=== PATIENT | male | born 1965 | race Caucasian/White ===

== ENCOUNTER 2020-03-28 08:27 | Observation (INO) ==
[2020-03-28] MEDS ORDERED: 0.9 % Sodium Chloride 1,000 ML IVC ONE (08:42)
[2020-03-28] MEDS ORDERED: Ipratropium/Albuterol Neb 3 ML IH ONE (08:42)
[2020-03-28 09:22] LABS: INR 1.5; Prothrombin Time 16.9 Seconds (9.4-12.1)
[2020-03-28 09:25] LABS: Activated Partial Thrombo Time 39.5 Seconds (26.0-36.0)
[2020-03-28 09:35] LABS: Basophils # 0.1 K/mcL (0.0-0.2); Basophils % 0.4 %; Eosinophils # 0.6 K/mcL (0.0-0.6); Eosinophils % 3.5 %; Hematocrit 43.4 % (37.5-50.1); Hemoglobin 14.5 g/dL (12.9-16.9); Immature Granulocytes % 0.8 % (0-4); Lymphocytes # 2.3 K/mcL (0.6-4.6); Lymphocytes % 13.9 %; Mean Corpuscular HGB Conc 33.4 g/dL (31.6-35.5); Mean Corpuscular Hemoglobin 28.5 pg (28.0-33.3); Mean Corpuscular Volume 85.4 fL (83.0-100.0); Mean Platelet Volume 9.6 fL (9.4-12.4); Monocytes # 0.9 K/mcL (0.0-1.3); Monocytes % 5.3 %; Neutrophils # 12.8 K/mcL (1.6-8.9); Platelet Count 380 K/mcL (140-400); Red Blood Count 5.08 M/mcL (4.19-5.50); Red Cell Distribution Width 13.9 % (11.5-14.5); Segmented Neutrophils % 76.1 %; White Blood Count 16.9 K/mcL (4.3-11.1)
[2020-03-28 09:41] LABS: Alanine Aminotransferase 19 Units/L (7-52); Albumin 3.7 g/dL (3.5-5.7); Albumin/Globulin Ratio 0.7 (1.1-2.2); Alkaline Phosphatase 59 Units/L (34-104); Aspartate Amino Transferase 19 Units/L (13-39); BUN/Creatinine Ratio 9 (6-26); Bilirubin,Direct 0.1 mg/dL (0.0-0.2); Bilirubin,Indirect 0.6 mg/dL (0.0-1.0); Bilirubin,Total 0.7 mg/dL (0.3-1.0); Blood Urea Nitrogen 10 mg/dL (6-20); Calcium 9.5 mg/dL (8.6-10.3); Carbon Dioxide 27 mEq/L (23-29); Chloride 97 mEq/L (98-107); Globulin 5.5 g/dL (2.4-3.5); Glucose 96 mg/dL (70-105); Osmolality,Calculated 273 (280-300); Potassium 4.1 mEq/L (3.5-5.1); Sodium 132 mEq/L (136-145); Total Protein 9.2 g/dL (6.4-8.9); Troponin I 0.03 ng/mL (< 0.04); eGFR For African Americans > 60 (> 60); eGFR For Non-African Americans > 60 (> 60)
[2020-03-28] MEDS ORDERED: Isovue-370 500 ML BOTTLE IVP ONE (09:56)
[2020-03-28] MEDS ORDERED: 0.9 % Sodium Chloride 1,000 ML IV ONE (09:57)
[2020-03-28] MEDS ORDERED: Cefepime HCl 2,000 MG in 0.9 % Sodium Chloride Mini Bag 100 ML IVPB ONE (09:59)
[2020-03-28] MEDS ORDERED: methylPREDNISolone 125 MG/2 ML VIAL IVP ONE (10:04)
[2020-03-28 10:08] LABS: Adenovirus Not Detected (Not Detect); Bordetella Pertussis Not Detected (Not Detect); Chlamydophila pneumoniae Not Detected (Not Detect); Coronavirus 229E Not Detected (Not Detect); Coronavirus HKU1 Not Detected (Not Detect); Coronavirus NL63 Not Detected (Not Detect); Coronavirus OC43 Not Detected (Not Detect); Human Metapneumovirus Not Detected (Not Detect); Human Rhinovirus/Enterovirus Not Detected (Not Detect); Influenza A Subtype 2009 H1 Not Detected (Not Detect); Influenza B Not Detected (Not Detect); Mycoplasma pneumoniae Not Detected (Not Detect); Parainfluenza Virus 1 Not Detected (Not Detect); Parainfluenza Virus 2 Not Detected (Not Detect); Parainfluenza Virus 3 Not Detected (Not Detect); Parainfluenza Virus 4 Not Detected (Not Detect); Respiratory Syncytial Virus Not Detected (Not Detect); SARS-CoV-2 Not Detected (Not Detect)
[2020-03-28 10:18] LABS: Bilirubin,Urine Negative (Negative); Blood,Urine Negative (Negative); Clarity,Urine Clear (Clear); Color,Urine Light-Yellow (Yellow); Glucose,Urine (UA) Normal (Normal); Ketones,Urine 10 mg/dL (Negative); Leukocyte Esterase,Urine Negative (Negative); Nitrite,Urine Negative (Negative); PH,Urine 6.5 pH Units (5.0-8.0); Protein,Urine Negative (Neg-Trace); Urobilinogen,Urine Normal (Normal)
[2020-03-28] MEDS ORDERED: Naloxone 0.4 MG/ML INJ IVP PRN (15:06)
[2020-03-28] MEDS ORDERED: *HR* Metoprolol 5 MG/5 ML VIAL IVP ONE (16:34)
[2020-03-28] MEDS ORDERED: Perflutren Lipid Microsphere 1.3 ML in 0.9 % Sodium Chloride 8.7 ML IVP PRN (16:36)
[2020-03-28] MEDS ORDERED: 0.9 % Sodium Chloride 1,000 ML ONE (16:42)
[2020-03-28] MEDS: MethylPREDNISolone 40 MG/ML VIAL IVP SCH (16:57)
[2020-03-28] MEDS: 0.9 % Sodium Chloride 1,000 ML IVC SCH (16:57)
[2020-03-28] MEDS ORDERED: Vancomycin 2,000 MG/520 ML IV.SOLN IVPB ONE (17:05)
[2020-03-28 17:38] LABS: Phosphorous 2.5 mg/dL (2.7-4.5)
[2020-03-28 17:39] LABS: Troponin I < 0.03 ng/mL (< 0.04)
[2020-03-28 17:52] LABS: Thyroid Stimulating Hormone 0.663 mcIU/mL (0.340-5.600)
[2020-03-28] MEDS: GuaiFENesin Liq 200 MG/10 ML UDC PO SCH (18:06)
[2020-03-28] MEDS ORDERED: *HR* Metoprolol 5 MG/5 ML VIAL IVP PRN (18:19)
[2020-03-28] MEDS: Melatonin 3 MG TABLET PO PRN (20:29)
[2020-03-28] MEDS: Levalbuterol Neb 1.25 MG/3 ML IH SCH (22:39)
[2020-03-29] MEDS: MethylPREDNISolone 40 MG/ML VIAL IVP SCH ×5 (00:44→23:11)
[2020-03-29] MEDS: GuaiFENesin Liq 200 MG/10 ML UDC PO SCH ×5 (00:44→23:11)
[2020-03-29] MEDS: Cefepime HCl 2,000 MG in Water for inj. (sterile) 20 ML IVP SCH ×4 (00:44→23:11)
[2020-03-29] MEDS: Clindamycin 600 MG/50 ML 600 MG/50 ML IV.SOLN IVPB SCH ×2 (01:44→09:58)
[2020-03-29 01:52] LABS: Basophils % 0.1 %; Hematocrit 37.2 % (37.5-50.1); Immature Granulocytes % 0.9 % (0-4); Lymphocytes # 1.2 K/mcL (0.6-4.6); Lymphocytes % 8.8 %; Mean Corpuscular Hemoglobin 27.9 pg (28.0-33.3); Mean Corpuscular Volume 87.3 fL (83.0-100.0); Mean Platelet Volume 9.9 fL (9.4-12.4); Monocytes # 0.3 K/mcL (0.0-1.3); Monocytes % 2.5 %; Neutrophils # 12.1 K/mcL (1.6-8.9); Platelet Count 346 K/mcL (140-400); Red Blood Count 4.26 M/mcL (4.19-5.50); Red Cell Distribution Width 14.2 % (11.5-14.5); Segmented Neutrophils % 87.7 %; White Blood Count 13.8 K/mcL (4.3-11.1)
[2020-03-29 01:54] LABS: Hemoglobin 11.9 g/dL (12.9-16.9)
[2020-03-29 02:00] LABS: BUN/Creatinine Ratio 16 (6-26); Blood Urea Nitrogen 16 mg/dL (6-20); Calcium 8.3 mg/dL (8.6-10.3); Carbon Dioxide 24 mEq/L (23-29); Chloride 107 mEq/L (98-107); Glucose 156 mg/dL (70-105); Osmolality,Calculated 286 (280-300); Potassium 4.1 mEq/L (3.5-5.1); Sodium 136 mEq/L (136-145); eGFR For African Americans > 60 (> 60); eGFR For Non-African Americans > 60 (> 60)
[2020-03-29] MEDS: Levalbuterol Neb 1.25 MG/3 ML IH SCH ×4 (02:58→20:52)
[2020-03-29] MEDS: Acetaminophen 325 MG TABLET PO PRN ×2 (03:27→21:36)
[2020-03-29] MEDS: 0.9 % Sodium Chloride 1,000 ML IVC SCH ×2 (03:31→15:59)
[2020-03-29] MEDS ORDERED: Vancomycin 1,500 MG/265 ML IV.SOLN IVPB SCH (06:00)
[2020-03-29] MEDS: *HR* Heparin 5,000 UNIT/ML VIAL SQ SCH ×2 (06:09→17:21)
[2020-03-29] MEDS: Fluticasone Propionate Nasal 50 MCG/SPRAY BOTTLE NS SCH (09:57)
[2020-03-29] MEDS ORDERED: Azithromycin 500 MG in 0.9 % Sodium Chloride 250 ML IVPB SCH (13:00)
[2020-03-29] MEDS: Melatonin 3 MG TABLET PO PRN (21:36)
[2020-03-30] MEDS: Levalbuterol Neb 1.25 MG/3 ML IH SCH ×2 (02:54→10:51)
[2020-03-30] MEDS: *HR* Heparin 5,000 UNIT/ML VIAL SQ SCH (05:08)
[2020-03-30] MEDS: GuaiFENesin Liq 200 MG/10 ML UDC PO SCH (05:08)
[2020-03-30] MEDS: MethylPREDNISolone 40 MG/ML VIAL IVP SCH (05:08)
[2020-03-30 07:32] VITALS: BP 114/63
[2020-03-30] MEDS: Cefepime HCl 2,000 MG in Water for inj. (sterile) 20 ML IVP SCH (08:27)
[2020-03-30] MEDS: Fluticasone Propionate Nasal 50 MCG/SPRAY BOTTLE NS SCH (08:28)
== END 2020-03-30 11:01 | disposition home or self-care (01) ==
LOC: 2ANU 08:27 → EMEROOARM 08:27 → 2ANU 14:27
PROVIDERS: ADMIT Student in an Organized Health Care Education/Training Program; ATTEND Student in an Organized Health Care Education/Training Program